=== PATIENT | male | born 1945 | race Caucasian/White ===

== ENCOUNTER → 2017-10-27 | Outpatient (CLI) | payer OTHER ==
[~2017-10-27] MED LIST: ACETAMINOPHEN325 M1 PO; ATORVASTATIN CA40 MG PO; BANATROL PLUS1 EACH PO; BAYER CHEWABLE81 MG PO; HEPARIN SO5000 UNIT3 SC; MELATONIN5 M1 PO; NOVOLOG PE100 UNITS/ SC; PLAQUENIL200 MG PO; PREDNISONE10 MG PO; PROTONIX40 M1 PO; ROXICODONE5 MG PO; SERTRALINE HCL50 MG PO; SILTUSSIN100 MG/51 PO; ULTRAM50 MG PO
[2017-10-27 14:50] LABS: TYPE OF FLUID PLEURAL
[2017-10-27 15:35] LABS: APPEARANCE CLEAR-SLIGHTLY CLOUDY; BODY FLUID EOSINOPHILS 1 % (0-25); BODY FLUID RBC'S 2000 /MM^3 (0-100); BODY FLUID WBC'S 112 /MM^3 (0-500); MONONUCLEAR WBC'S 61 %; POLYNUCLEAR WBC'S 38 % (0-25)
[2017-10-27 15:51] LABS: BODY FLUID GLUCOSE 152 MG/DL; BODY FLUID LDH 141 IU/L
[2017-10-27 15:54] LABS: BODY FLUID PROTEIN < 3.0 G/DL
== END | disposition designated cancer center or children's hospital (05) ==
LOC: RAD 13:52 → EDSTATUS 14:00 → RAD 14:00
PROVIDERS: Internal Medicine
PROC: 0W993ZZ Drainage of Right Pleural Cavity, Percutaneous Approach (ICD-10-PCS; principal; 2017-10-27)
DX: J90 Pleural effusion, not elsewhere classified (principal); J96.91 Respiratory failure, unspecified with hypoxia; Z99.11 Dependence on respirator [ventilator] status
CPT/HCPCS: 76942; 82945; 83615 91; 84157; 87070; 87075; 87116; 87205; 87206; 88108; 88305; 89051

== ENCOUNTER → 2017-11-08 | Outpatient (CLI) | payer OTHER | END | disposition home or self-care (01) | LOC: RAD 13:31 → EDSTATUS 14:00 → RAD 14:00 | PROC: 0W993ZZ Drainage of Right Pleural Cavity, Percutaneous Approach (ICD-10-PCS; principal; 2017-11-08) | DX: J90 Pleural effusion, not elsewhere classified (principal) | CPT/HCPCS: 76942 ==

== ENCOUNTER 2017-11-15 00:13 | Emergency (ER) | payer OTHER ==
[~2017-11-15] VITALS: Ht 175.3 cm; Wt 86.0 kg
[2017-11-15 02:47] VITALS: BP 115/62
[2017-11-15] MEDS ORDERED: MORGIDOX100 MG PO (10:30)
[2017-11-15] MEDS ORDERED: XANAX0.5 MG PO (10:30)
[2017-11-15] MEDS ORDERED: LASIX40 MG PO (10:31)
[2017-11-16] MEDS ORDERED: BUMEX1 MG GT (08:58)
[2017-11-16] MEDS ORDERED: POTASSIUM20 MEQ/11 PO (08:59)
[2017-11-16] MEDS ORDERED: MAG-OXIDE400 MG GT (09:01)
== END 2017-11-15 02:41 ==
LOC: EME 00:13
DX: Z43.1 Encounter for attention to gastrostomy (principal); Z93.0 Tracheostomy status; Z99.11 Dependence on respirator [ventilator] status; Z87.09 Personal history of other diseases of the respiratory system; Z87.891 Personal history of nicotine dependence
CPT/HCPCS: 74018; 94002; 99281; 99284

== ENCOUNTER → 2017-11-16 | Outpatient (CLI) | payer OTHER ==
[~2017-11-16] MED LIST changes: +BUMEX1 MG GT; +LASIX40 MG PO; +MAG-OXIDE400 MG GT; +MORGIDOX100 MG PO; +POTASSIUM20 MEQ/11 PO; +XANAX0.5 MG PO
[2017-11-16 08:28] LABS: HEMATOCRIT 26.9 % (38.0-50.0); HEMOGLOBIN 8.1 G/DL (12.5-16.6); MCH 24.8 PG (29.0-34.0); MCHC 30.1 G/DL (30.0-36.0); MCV 82.5 FL (86-99); PLATELET COUNT 258 K/uL (156-360); RBC DIS.WIDTH-CV 17.2 % (11.8-14.6); RBC DIS.WIDTH-SD 51.7 % (39-53); RED BLOOD COUNT 3.26 M/uL (4.00-5.50); WHITE BLOOD COUNT 13.5 K/uL (4.1-10.2)
[2017-11-16 08:35] LABS: INTER. NORMALIZED RATIO 1.2
[2017-11-16 08:37] LABS: PTT 25.9 SEC (25-37)
== END | disposition home or self-care (01) ==
LOC: OPR 07:49 → EDSTATUS 09:00 → OPR 09:00
PROVIDERS: Internal Medicine
PROC: 0W9930Z Drainage of Right Pleural Cavity with Drainage Device, Percutaneous Approach (ICD-10-PCS; principal; 2017-11-16)
DX: J90 Pleural effusion, not elsewhere classified (principal)
CPT/HCPCS: 77012; 85027; 85610; 85730; C1729; J3010